=== PATIENT | female | born 1945 | race Caucasian/White ===

== ENCOUNTER 2020-03-23 04:28 | Day surgery (SDC) | payer OTHER ==
[2020-03-20 16:57] VITALS: BMI 27.4
[2020-03-23] MEDS ORDERED: BUPIVACAINE HCL/PF 0.5% (5 MG/ML) 30 ML VIAL IJ ONE (12:50)
[2020-03-23] MEDS ORDERED: LIDOCAINE HCL 1% PRESERVATIVE FREE - 30ML VIAL IJ ONE (12:50)
[2020-03-23] MEDS ORDERED: TRIAMCINOLONE ACETONIDE 40 MG/ML 10 ML VIAL IJ ONE (12:50)
[2020-03-23 13:09] VITALS: BP 123/76; PULSE 72; TEMP 98.8
== END 2020-03-23 13:29 | disposition home or self-care (01) ==
LOC: JASU-SURG 04:28
PROVIDERS: ATTEND Pain Medicine Pain Medicine
PROC: 3E0U3BZ Introduction of Anesthetic Agent into Joints, Percutaneous Approach (ICD-10-PCS; 2020-03-23)
PROC: 3E0U33Z Introduction of Anti-inflammatory into Joints, Percutaneous Approach (ICD-10-PCS; principal; 2020-03-23 12:30)
DX: M53.3 Sacrococcygeal disorders, not elsewhere classified (principal)
CPT/HCPCS: 76000-TC-FY

== ENCOUNTER 2020-12-07 04:25 | Day surgery (SDC) | payer OTHER ==
[2020-12-05 18:19] VITALS: BMI 29.9
[~2020-12-07 04:25] MED LIST: BUPIVACAINE HCL/PF 0.5% (5 MG/ML) 30 ML VIAL IJ ONE; IOHEXOL 180 MG/1 ML ML IJ ONE; LIDOCAINE 1% P/F 10 MG/ML VIAL PNB ONE; TRIAMCINOLONE ACETONIDE 40 MG/ML 10 ML VIAL IJ ONE
[2020-12-07] MEDS ORDERED: BUPIVACAINE HCL/PF 0.25% (2.5MG/ML) 10 ML VIAL ONE (07:08)
[2020-12-07] MEDS ORDERED: BUPIVACAINE HCL/PF 0.5% (5MG/ML) 10 ML VIAL ONE (07:08)
[2020-12-07] MEDS ORDERED: TRIAMCINOLONE ACET 40MG/1ML VIAL ONE (07:08)
[2020-12-07] MEDS ORDERED: LIDOCAINE HCL/PF 1% SDV 5ML VIAL ONE (07:09)
[2020-12-07] MEDS ORDERED: LIDOCAINE 1% P/F 10 MG/ML VIAL PNB ONE (09:49)
[2020-12-07] MEDS ORDERED: BUPIVACAINE HCL/PF 0.5% (5 MG/ML) 30 ML VIAL IJ ONE (09:49)
[2020-12-07] MEDS ORDERED: TRIAMCINOLONE ACETONIDE 40 MG/ML 10 ML VIAL IJ ONE (09:49)
[2020-12-07 10:55] VITALS: BP 112/57; PULSE 74; TEMP 96.8
== END 2020-12-07 10:25 | disposition home or self-care (01) ==
LOC: JASU-SURG 04:25
PROVIDERS: ATTEND Pain Medicine Pain Medicine
PROC: 3E0U3BZ Introduction of Anesthetic Agent into Joints, Percutaneous Approach (ICD-10-PCS; 2020-12-07)
PROC: 3E0U33Z Introduction of Anti-inflammatory into Joints, Percutaneous Approach (ICD-10-PCS; principal; 2020-12-07 09:15)
DX: M53.3 Sacrococcygeal disorders, not elsewhere classified (principal)
CPT/HCPCS: 76000-TC-FY

== ENCOUNTER 2021-01-01 10:51 | Day surgery (SDC) | payer OTHER ==
[2020-12-31 13:52] VITALS: BMI 29.0
[2021-01-01] MEDS ORDERED: LIDOCAINE 1% P/F 10 MG/ML VIAL INF ONE (14:12)
[2021-01-01] MEDS ORDERED: DEXAMETHASONE SOD PHOSPHATE 10 MG/1 ML VIAL IVPUSH ONE (14:14)
[2021-01-01] MEDS ORDERED: BUPIVACAINE HCL/PF 0.5% (5MG/ML) 10 ML VIAL ONE (14:31)
[2021-01-01] MEDS ORDERED: LIDOCAINE HCL/PF 1% SDV 5ML VIAL ONE (14:31)
[2021-01-01] MEDS ORDERED: BUPIVACAINE HCL/PF 0.25% (2.5MG/ML) 10 ML VIAL ONE (14:31)
[2021-01-01 15:08] VITALS: BP 130/74; PULSE 72; TEMP 97.8
== END 2021-01-01 15:00 | disposition home or self-care (01) ==
LOC: JASU-SURG 10:51
PROVIDERS: ATTEND Pain Medicine Pain Medicine
PROC: 3E0R33Z Introduction of Anti-inflammatory into Spinal Canal, Percutaneous Approach (ICD-10-PCS; 2021-01-01)
PROC: 3E0R3BZ Introduction of Anesthetic Agent into Spinal Canal, Percutaneous Approach (ICD-10-PCS; principal; 2021-01-01 12:00)
DX: M54.16 Radiculopathy, lumbar region (principal)
CPT/HCPCS: 76000-TC-FY; J1100

== ENCOUNTER 2021-01-29 04:28 | Day surgery (SDC) | payer OTHER ==
[2021-01-23 15:53] VITALS: BMI 29.0
[2021-01-29] MEDS ORDERED: LIDOCAINE 1% P/F 10 MG/ML VIAL INF ONE (13:19)
[2021-01-29] MEDS ORDERED: DEXAMETHASONE SOD PHOSPHATE 10 MG/1 ML VIAL IVPUSH ONE (13:22)
[2021-01-29 14:39] VITALS: BP 120/74; PULSE 68; TEMP 98
== END 2021-01-29 14:15 | disposition home or self-care (01) ==
LOC: JASU-SURG 04:28
PROVIDERS: ATTEND Pain Medicine Pain Medicine
PROC: 3E0R33Z Introduction of Anti-inflammatory into Spinal Canal, Percutaneous Approach (ICD-10-PCS; 2021-01-29)
PROC: 3E0R3BZ Introduction of Anesthetic Agent into Spinal Canal, Percutaneous Approach (ICD-10-PCS; principal; 2021-01-29 11:30)
DX: M48.061 Spinal stenosis, lumbar region without neurogenic claudication (principal); M54.16 Radiculopathy, lumbar region
CPT/HCPCS: 76000-TC-FY; J1100

== ENCOUNTER 2021-08-02 04:16 | Day surgery (SDC) | payer OTHER ==
[2021-07-31 13:33] VITALS: BMI 29.0
[~2021-08-02 04:16] MED LIST changes: -BUPIVACAINE HCL/PF 0.5% (5 MG/ML) 30 ML VIAL IJ ONE; +DEXAMETHASONE SOD PHOSPHATE 10 MG/1 ML VIAL IVPUSH ONE; -LIDOCAINE 1% P/F 10 MG/ML VIAL PNB ONE; -TRIAMCINOLONE ACETONIDE 40 MG/ML 10 ML VIAL IJ ONE
[2021-08-02] MEDS ORDERED: DEXAMETHASONE SOD PHOSPHATE 10 MG/1 ML VIAL ONE (07:45)
[2021-08-02] MEDS ORDERED: LIDOCAINE HCL/PF 1% SDV 5ML VIAL ONE (07:45)
[2021-08-02] MEDS ORDERED: LIDOCAINE 1% P/F 10 MG/ML VIAL INF ONE (14:30)
[2021-08-02] MEDS ORDERED: IOHEXOL 180 MG/1 ML ML IJ ONE (14:32)
[2021-08-02] MEDS ORDERED: DEXAMETHASONE SOD PHOSPHATE 10 MG/1 ML VIAL IVPUSH ONE (14:36)
[2021-08-02 15:57] VITALS: BP 129/64; PULSE 63; TEMP 98.8
== END 2021-08-02 15:20 | disposition home or self-care (01) ==
LOC: JASU-SURG 04:16
PROVIDERS: ATTEND Pain Medicine Pain Medicine
PROC: 3E0R33Z Introduction of Anti-inflammatory into Spinal Canal, Percutaneous Approach (ICD-10-PCS; 2021-08-02)
PROC: 3E0R3BZ Introduction of Anesthetic Agent into Spinal Canal, Percutaneous Approach (ICD-10-PCS; principal; 2021-08-02 14:30)
DX: M48.061 Spinal stenosis, lumbar region without neurogenic claudication (principal); M54.16 Radiculopathy, lumbar region
CPT/HCPCS: 76000-TC-FY; J1100

== ENCOUNTER 2021-12-06 04:24 | Day surgery (SDC) | payer OTHER ==
[2021-12-05 12:47] VITALS: BMI 28.7
[~2021-12-06 04:24] MED LIST changes: +BUPIVACAINE HCL/PF 0.5% (5MG/ML) 10 ML VIAL PNB ONE; -DEXAMETHASONE SOD PHOSPHATE 10 MG/1 ML VIAL IVPUSH ONE; -IOHEXOL 180 MG/1 ML ML IJ ONE; +LIDOCAINE 1% P/F 10 MG/ML VIAL PNB ONE; +TRIAMCINOLONE ACET 40MG/1ML VIAL IM ONE
[2021-12-06] MEDS ORDERED: TRIAMCINOLONE ACET 40MG/1ML VIAL ONE (07:41)
[2021-12-06] MEDS ORDERED: BUPIVACAINE HCL/PF 0.5% (5MG/ML) 10 ML VIAL ONE (07:42)
[2021-12-06] MEDS ORDERED: LIDOCAINE HCL/PF 1% SDV 5ML VIAL ONE (07:42)
[2021-12-06 08:31] VITALS: RESP 20
[2021-12-06] MEDS ORDERED: BUPIVACAINE HCL/PF 0.5% (5MG/ML) 10 ML VIAL PNB ONE (10:23)
[2021-12-06] MEDS ORDERED: TRIAMCINOLONE ACETONIDE 40 MG/ML 10 ML VIAL IJ ONE (10:23)
[2021-12-06] MEDS ORDERED: LIDOCAINE 1% P/F 10 MG/ML VIAL PNB ONE (10:23)
[2021-12-06 10:42] VITALS: BP 114/68; PULSE 72; TEMP 98.7
== END 2021-12-06 12:11 | disposition home or self-care (01) ==
LOC: JASU-SURG 04:24
PROVIDERS: ATTEND Pain Medicine Pain Medicine
PROC: 3E0U3BZ Introduction of Anesthetic Agent into Joints, Percutaneous Approach (ICD-10-PCS; 2021-12-06)
PROC: 3E0U33Z Introduction of Anti-inflammatory into Joints, Percutaneous Approach (ICD-10-PCS; principal; 2021-12-06 09:45)
DX: M53.3 Sacrococcygeal disorders, not elsewhere classified (principal)
CPT/HCPCS: 76000-TC-FY

== ENCOUNTER 2022-01-14 04:24 | Day surgery (SDC) | payer OTHER ==
[2022-01-10 11:00] VITALS: BMI 28.7
[2022-01-14] MEDS ORDERED: BUPIVACAINE HCL/PF 0.75% 10 ML VIAL ONE (07:30)
[2022-01-14] MEDS ORDERED: LIDOCAINE HCL/PF 1% SDV 5ML VIAL ONE (07:31)
[2022-01-14 08:46] VITALS: RESP 18
[2022-01-14] MEDS ORDERED: LIDOCAINE HCL 1% PRESERVATIVE FREE - 30ML VIAL IJ ONE (10:22)
[2022-01-14] MEDS ORDERED: BUPIVACAINE HCL/PF 0.75% 10 ML VIAL PNB ONE ×2 (10:22→10:27)
[2022-01-14 12:42] VITALS: BP 123/75; PULSE 79; TEMP 97.9
== END 2022-01-14 11:10 | disposition home or self-care (01) ==
LOC: JASU-SURG 04:24
PROVIDERS: ATTEND Pain Medicine Pain Medicine
PROC: 3E0T33Z Introduction of Anti-inflammatory into Peripheral Nerves and Plexi, Percutaneous Approach (ICD-10-PCS; 2022-01-14)
PROC: 3E0T3BZ Introduction of Anesthetic Agent into Peripheral Nerves and Plexi, Percutaneous Approach (ICD-10-PCS; principal; 2022-01-14 10:19)
DX: M47.816 Spondylosis without myelopathy or radiculopathy, lumbar region (principal)
CPT/HCPCS: 76000-TC-FY

== ENCOUNTER 2022-02-11 04:44 | Day surgery (SDC) | payer OTHER ==
[2022-02-07 09:59] VITALS: BMI 28.2
[2022-02-11] MEDS ORDERED: LIDOCAINE HCL/PF 1% SDV 5ML VIAL ONE (07:34)
[2022-02-11] MEDS ORDERED: BUPIVACAINE HCL/PF 0.75% 10 ML VIAL ONE (07:34)
[2022-02-11] MEDS ORDERED: SODIUM CHLORIDE 0.9% P/F 10 ML VIAL IJ ONE (07:58)
[2022-02-11] MEDS ORDERED: LIDOCAINE HCL 1% PRESERVATIVE FREE - 30ML VIAL INF ONE (12:40)
[2022-02-11] MEDS ORDERED: BUPIVACAINE HCL/PF 0.75% 10 ML VIAL NR ONE (12:41)
[2022-02-11 13:42] VITALS: BP 110/70; PULSE 80; RESP 29; TEMP 98
== END 2022-02-11 13:42 | disposition home or self-care (01) ==
LOC: JASU-SURG 04:44
PROVIDERS: ATTEND Pain Medicine Pain Medicine
PROC: 3E0T33Z Introduction of Anti-inflammatory into Peripheral Nerves and Plexi, Percutaneous Approach (ICD-10-PCS; 2022-02-11)
PROC: 3E0T3BZ Introduction of Anesthetic Agent into Peripheral Nerves and Plexi, Percutaneous Approach (ICD-10-PCS; principal; 2022-02-11 12:30)
DX: M47.816 Spondylosis without myelopathy or radiculopathy, lumbar region (principal)
CPT/HCPCS: 76000-TC-FY

== ENCOUNTER 2022-03-11 04:52 | Day surgery (SDC) | payer OTHER ==
[2022-03-06 14:09] VITALS: BMI 28.2
[~2022-03-11 04:52] MED LIST changes: -BUPIVACAINE HCL/PF 0.5% (5MG/ML) 10 ML VIAL PNB ONE; +BUPIVACAINE HCL/PF 0.75% 10 ML VIAL NR ONE; +DEXAMETHASONE SOD PHOSPHATE 10 MG/1 ML VIAL IM ONE; -LIDOCAINE 1% P/F 10 MG/ML VIAL PNB ONE; +LIDOCAINE HCL 1% PRESERVATIVE FREE - 30ML VIAL IJ ONE; +LIDOCAINE HCL/PF 2% SDV 5ML VIAL INF ONE; -TRIAMCINOLONE ACET 40MG/1ML VIAL IM ONE
[2022-03-11] MEDS ORDERED: LIDOCAINE HCL/PF 2% SDV 5ML VIAL ONE ×2 (07:17→11:04)
[2022-03-11] MEDS ORDERED: BUPIVACAINE HCL/PF 0.75% 10 ML VIAL ONE (07:17)
[2022-03-11] MEDS ORDERED: LIDOCAINE HCL/PF 1% SDV 5ML VIAL ONE (07:18)
[2022-03-11] MEDS ORDERED: DEXAMETHASONE SOD PHOSPHATE 10 MG/1 ML VIAL ONE ×2 (07:35→11:02)
[2022-03-11 09:50] VITALS: RESP 18
[2022-03-11] MEDS ORDERED: LIDOCAINE HCL 1% PRESERVATIVE FREE - 30ML VIAL IJ ONE (11:01)
[2022-03-11] MEDS ORDERED: LIDOCAINE HCL/PF 2% SDV 5ML VIAL INF ONE (11:45)
[2022-03-11] MEDS ORDERED: BUPIVACAINE HCL/PF 0.75% 10 ML VIAL NR ONE (12:00)
[2022-03-11] MEDS ORDERED: DEXAMETHASONE SOD PHOSPHATE 10 MG/1 ML VIAL IM ONE (12:01)
[2022-03-11 12:23] VITALS: PULSE 76; TEMP 98
[2022-03-11] MEDS ORDERED: ACETAMINOPHEN 325 MG TABLET (FP) ONE ×2 (12:26)
[2022-03-11 12:53] VITALS: BP 120/60
== END 2022-03-11 12:52 | disposition home or self-care (01) ==
LOC: JASU-SURG 04:52
PROVIDERS: ATTEND Pain Medicine Pain Medicine
PROC: 005Y3ZZ Destruction of Lumbar Spinal Cord, Percutaneous Approach (ICD-10-PCS; principal; 2022-03-11 11:00)
DX: M47.816 Spondylosis without myelopathy or radiculopathy, lumbar region (principal)
CPT/HCPCS: 76000-TC-FY; J1100

== ENCOUNTER 2023-01-09 04:16 | Day surgery (SDC) | payer OTHER ==
[2023-01-07 17:40] VITALS: BMI 28.7
[~2023-01-09 04:16] MED LIST changes: +ACETAMINOPHEN 500 MG TABLET (FP) PO PRN; -BUPIVACAINE HCL/PF 0.75% 10 ML VIAL NR ONE; -DEXAMETHASONE SOD PHOSPHATE 10 MG/1 ML VIAL IM ONE; -LIDOCAINE HCL 1% PRESERVATIVE FREE - 30ML VIAL IJ ONE; -LIDOCAINE HCL/PF 2% SDV 5ML VIAL INF ONE
[2023-01-09] MEDS ORDERED: LIDOCAINE HCL/PF 2% SDV 5ML VIAL ONE (07:39)
[2023-01-09] MEDS ORDERED: LIDOCAINE HCL/PF 1% SDV 5ML VIAL ONE (07:39)
[2023-01-09] MEDS ORDERED: BUPIVACAINE HCL/PF 0.75% 10 ML VIAL ONE (07:39)
[2023-01-09] MEDS ORDERED: BUPIVACAINE HCL/PF 0.5% (5MG/ML) 10 ML VIAL ONE (07:39)
[2023-01-09 10:29] VITALS: RESP 20
[2023-01-09] MEDS ORDERED: DEXAMETHASONE SOD PHOSPHATE 10 MG/1 ML VIAL IM ONE (12:16)
[2023-01-09] MEDS ORDERED: LIDOCAINE HCL 1% PRESERVATIVE FREE - 30ML VIAL IJ ONE (12:19)
[2023-01-09] MEDS ORDERED: LIDOCAINE HCL/PF 2% SDV 5ML VIAL INF ONE (12:21)
[2023-01-09 13:08] VITALS: BP 130/75; PULSE 76; TEMP 97.7
[2023-01-09] MEDS ORDERED: ACETAMINOPHEN 500 MG TABLET (FP) PO PRN (15:12)
== END 2023-01-09 13:25 | disposition home or self-care (01) ==
LOC: JASU-SURG 04:16
PROVIDERS: ATTEND Pain Medicine Pain Medicine
PROC: 015B3ZZ Destruction of Lumbar Nerve, Percutaneous Approach (ICD-10-PCS; principal; 2023-01-09 12:00)
DX: M47.816 Spondylosis without myelopathy or radiculopathy, lumbar region (principal)
CPT/HCPCS: 76000-TC-FY; J1100

== ENCOUNTER → 2023-02-06 | Day surgery (SDC) | payer OTHER ==
[2023-02-04 16:14] VITALS: BMI 28.7
[~2023-02-06] MED LIST changes: +BUPIVACAINE HCL/PF 0.25% (2.5MG/ML) 10 ML VIAL ONE; +BUPIVACAINE HCL/PF 0.5% (5MG/ML) 10 ML VIAL IJ ONE; +BUPIVACAINE HCL/PF 0.5% (5MG/ML) 10 ML VIAL ONE; +IOHEXOL 180 MG/1 ML ML IJ ONE; +LIDOCAINE 1% P/F 10 MG/ML VIAL INF ONE; +LIDOCAINE HCL/PF 1% SDV 5ML VIAL ONE; +TRIAMCINOLONE ACET 40MG/1ML VIAL ONE; +TRIAMCINOLONE ACETONIDE 40 MG/ML 10 ML VIAL IJ ONE
[2023-02-06 11:48] VITALS: PULSE 78; RESP 20
[2023-02-06 12:17] VITALS: BP 120/70; TEMP 97.8
== END | disposition home or self-care (01) ==
LOC: JASU-SURG 04:27
PROVIDERS: ATTEND Pain Medicine Pain Medicine
PROC: 3E0U3BZ Introduction of Anesthetic Agent into Joints, Percutaneous Approach (ICD-10-PCS; 2023-02-06)
PROC: 3E0U33Z Introduction of Anti-inflammatory into Joints, Percutaneous Approach (ICD-10-PCS; principal; 2023-02-06 11:30)
DX: M16.11 Unilateral primary osteoarthritis, right hip (principal)
CPT/HCPCS: 76000-TC-FY

== ENCOUNTER 2023-03-17 04:24 | Day surgery (SDC) | payer OTHER ==
[2023-03-12 09:12] VITALS: BMI 28.7
[2023-03-17 10:33] VITALS: RESP 18
[2023-03-17] MEDS ORDERED: LACTATED RINGERS SOLUTION 1,000 ML IV SCH (11:45)
[2023-03-17] MEDS ORDERED: LIDOCAINE HCL/PF 2% SDV 5ML VIAL PNB ONE ×2 (12:14→12:30)
[2023-03-17] MEDS ORDERED: LIDOCAINE HCL 1% PRESERVATIVE FREE - 30ML VIAL IJ ONE ×2 (12:14→12:25)
[2023-03-17 14:26] VITALS: BP 118/65; PULSE 95; TEMP 98
[2023-03-17] MEDS ORDERED: ACETAMINOPHEN 500 MG TABLET (FP) PO PRN (15:36)
== END 2023-03-17 14:15 | disposition home or self-care (01) ==
LOC: JASU-SURG 04:24
PROVIDERS: ATTEND Pain Medicine Pain Medicine
PROC: 01HY3MZ Insertion of Neurostimulator Lead into Peripheral Nerve, Percutaneous Approach (ICD-10-PCS; 2023-03-17)
PROC: 0JH73BZ Insertion of Single Array Stimulator Generator into Back Subcutaneous Tissue and Fascia, Percutaneous Approach (ICD-10-PCS; principal; 2023-03-17 12:30)
DX: G89.4 Chronic pain syndrome (principal); M54.16 Radiculopathy, lumbar region
CPT/HCPCS: 63650; C1778; 76000-TC-FY; C1889; C1897